=== PATIENT | male | born 1945 | race Caucasian/White ===

== ENCOUNTER → 2017-10-20 | Outpatient (CLI) | payer MEDICARE, OTHER ==
[~2017-10-20] MED LIST: CEPH500 PO; Norco 5-325 Ta1 EACH PO; TIROSINT25 MCG PO
== END ==
LOC: LAB SHORT 07:12
DX: R31.0 Gross hematuria (principal)
CPT/HCPCS: 88108

== ENCOUNTER 2018-05-01 22:02 | Emergency (ER) | payer MEDICARE, OTHER ==
[~2018-05-01] VITALS: Ht 180.3 cm; Wt 70.3 kg
[~2018-05-01 22:02] MED LIST changes: -TIROSINT25 MCG PO
[2018-05-01] MEDS ORDERED: TIROSINT25 MCG PO (22:16)
== END 2018-05-01 23:05 | disposition home or self-care (01) ==
LOC: ER 22:02
DX: S61.411A Laceration without foreign body of right hand, initial encounter (principal); Z87.891 Personal history of nicotine dependence; W27.0XXA Contact with workbench tool, initial encounter
CPT/HCPCS: 12001; 99282